=== PATIENT | female | born 1940 | race Caucasian/White ===

== ENCOUNTER 2018-03-22 14:09 | Emergency (ER) | payer OTHER ==
[~2018-03-22] VITALS: Ht 157.5 cm; Wt 84.8 kg
[~2018-03-22 14:09] MED LIST: COZAAR100 MG; COZAAR50 MG PO; EFFEXOR XR37.5 MG; METFORMIN HCL500 MG; METFORMIN HCL500 MG PO; MIRALAX12 EA PO; SYNTHROID50 MCG
[2018-03-22] MEDS ORDERED: ATORVASTATIN CA10 MG (14:13)
[2018-03-22] MEDS ORDERED: PROTONIX40 M1 (14:14)
[2018-03-22] MEDS ORDERED: TESSALON PERLE100 M1 (14:14)
[2018-03-22] MEDS ORDERED: CARAFATE1 GM/10 ML (14:15)
[2018-03-22] MEDS ORDERED: VENLAFAXINE HCL25 MG (14:15)
[2018-03-22] MEDS ORDERED: CLONAZEPAM0.125 MG (14:15)
== END 2018-03-22 20:32 | disposition home or self-care (01) ==
LOC: ER 14:09
DX: J22 Unspecified acute lower respiratory infection (principal); J06.9 Acute upper respiratory infection, unspecified; J11.1 Influenza due to unidentified influenza virus with other respiratory manifestations

== ENCOUNTER 2018-10-04 16:36 | Inpatient (IN) | payer OTHER ==
[~2018-10-04] VITALS: Ht 165.1 cm; Wt 199.6 kg
[~2018-10-04 16:36] MED LIST changes: +ATORVASTATIN CA10 MG; +CARAFATE1 GM/10 ML; +CLONAZEPAM0.125 MG; +PROTONIX40 M1; +TESSALON PERLE100 M1; +VENLAFAXINE HCL25 MG
[2018-10-11] MEDS ORDERED: PROTONIX40 MG PO (11:56)
[2018-10-11] MEDS ORDERED: ATORVASTATIN CA10 MG PO (11:56)
[2018-10-11] MEDS ORDERED: CLONAZEPAM0.5 MG PO (11:56)
[2018-10-11] MEDS ORDERED: METFORMIN HCL500 MG PO (11:56)
[2018-10-11] MEDS ORDERED: QUETIAPINE FUM100 MG PO (11:56)
[2018-10-11] MEDS ORDERED: COZAAR50 MG PO (11:56)
[2018-10-11] MEDS ORDERED: SYNTHROID50 MCG PO (11:56)
[2018-10-11] MEDS ORDERED: REMERON30 MG PO (11:56)
[2018-10-11] MEDS ORDERED: VENLAFAXINE HCL25 MG PO (11:56)
== END 2018-10-11 15:58 | disposition home or self-care (01) | DRG 378 ==
LOC: ER 16:36 → MEDJ 10-05 15:04
PROC: 02HV33Z Insertion of Infusion Device into Superior Vena Cava, Percutaneous Approach (ICD-10-PCS; 2018-10-05)
PROC: 0DJ08ZZ Inspection of Upper Intestinal Tract, Via Natural or Artificial Opening Endoscopic (ICD-10-PCS; principal; 2018-10-10)
DX: K29.01 Acute gastritis with bleeding (principal); N17.8 Other acute kidney failure; D62 Acute posthemorrhagic anemia; K92.0 Hematemesis; E11.9 Type 2 diabetes mellitus without complications; Z79.4 Long term (current) use of insulin; E03.8 Other specified hypothyroidism; E78.49 Other hyperlipidemia; F41.8 Other specified anxiety disorders; I12.9 Hypertensive chronic kidney disease with stage 1 through stage 4 chronic kidney disease, or unspecified chronic kidney disease; E86.0 Dehydration; E11.22 Type 2 diabetes mellitus with diabetic chronic kidney disease; N18.2 Chronic kidney disease, stage 2 (mild)

== ENCOUNTER 2019-06-11 00:53 | Inpatient (IN) | payer OTHER ==
[~2019-06-11] VITALS: Ht 160 cm; Wt 89.8 kg
[~2019-06-11 00:53] MED LIST changes: +ATORVASTATIN CA10 MG PO; +CLONAZEPAM0.5 MG PO; +PROTONIX40 MG PO; +QUETIAPINE FUM100 MG PO; +REMERON30 MG PO; +SYNTHROID50 MCG PO; +VENLAFAXINE HCL25 MG PO
--- NOTE | 2019-06-11 01:05 | NUR ---
PT ALERTA Y ORIENTADA X3 ESFERAS TRAIDA EN AMBULANCIA POR PARAMEDICOS Y ENFERMERA DEL HOME. [facility]. PT INDICA EL TAHIRA DE HOY A LAS 6PM SE ENCONTRABA EN SORAYA FIESTA DE CUMPLEANOS EN [facility], PT ANADE BEBIO 4 COPAS DE VINO MILLAN. REFIERE EN LA NOCHE SE DIRIGIO A [facility] CUARTO E INGIRIO [facility] PASTILLA PARA DORMIR CLONAZEPAM 1MG. PT REFIERE PASADA OSRAYA HORA EMPEZO A SENTIR ACIDEZ Y REFLUJO Y EN UN ERUCTO VOMITO 3 OCACIONES SECRECIONES COLOR CORI "COFFE-GROUND", LOLA DESCRIBE PT. PT INDICA PADECER DE GASTRITIS CRONICA, HBP, HIPOTIROIDISMO Y DM2. [facility]ERY INTERNISTA ES DR TAMMY MEJIA, QUIEN LO CONSULTO SORAYA OCACION A DR SINAN RILEY PARA SORAYA ENDOSCOPIA, Y EL ESTUDIO FUE NEGATIVO A ULCERA U OTRA IRREGULARIDAD. SE PRESENTA PT A DR FERMIN.
--- NOTE | 2019-06-11 02:19 | NUR ---
MRS AREVALO ORIENTA A PT SOBRE TX, LA CUAL REFIERE ENTENDER. LE CLECTA MUESTRAS, LA CANALZA Y LE ADMINISTRA MEDICAMENTOS LOLA ORDEN MEDICA. PT TOLERA.
--- NOTE | 2019-06-11 03:21 | NUR ---
MRS SPIVEY ORIENTA A PT E INSERTA NGT BAJO MEDIDAS ASEPTICAS POR NARE RT, AL MOMENTO DE INSERCION SE ENCUENTRA CON DIFICULTAD Y SE LASTIMA NARE RT. SE ASISTE A MRS SPIVEY EN LAVADO GASRICO, PTE PRESENTA EGRESO CON SECRECIONES COLOR " COFFEE BROWN" CON RESTOS DE COMIDA Y AL FINALIZAR LAVADO, SE OBSERVAN RESTOS DE BROOKS COLOR GUZMAN BRILLANTE. DR FERMIN EVALUA SECRECIONES. SE MANTIENE A PT EN OBSERVACION POR CAMBIOS CON NGT Y IVFS PATENTE.
--- NOTE | 2019-06-11 07:51 | NUR ---
SE RECIBE DE TURNO ANTERIOR. PACIENTE FEMENINA. ALERTA Y ORIENTADA EN JEWEL ESFERAS. CABECERA A 30 GRADOS. BARANDAS ELEVADAS POR AVERY SEGURIDAD. SE OBSERVA CON BUEN PATRON RESPIRATORIO. PIEL TIBIA AL TACTO. NGT COLOCADO, PATENTE EN FOSA NASAL R+. CANALIZACION PATENTE, GABINO DE EDEMA Y/O ENROJECIMIENTO RECIBENDO 0.9%NSS @ 125 ML/HR POR IV PUMP. PACIENTE EN ESPERA DE CONSULTA CON DR MEJIA.
[2019-06-13] MEDS ORDERED: SYNTHROID50 MCG PO (14:07)
[2019-06-13] MEDS ORDERED: CLONAZEPAM0.5 MG PO (14:07)
[2019-06-13] MEDS ORDERED: REMERON30 MG PO (14:07)
[2019-06-13] MEDS ORDERED: PROTONIX40 MG PO (14:07)
[2019-06-13] MEDS ORDERED: METFORMIN HCL500 MG PO (14:07)
[2019-06-13] MEDS ORDERED: ZANTAC300 MG PO (14:07)
[2019-06-13] MEDS ORDERED: POM (MEDICAMENTO EN PO (14:07)
[2019-06-13] MEDS ORDERED: ATORVASTATIN CA10 MG PO (14:07)
[2019-06-13] MEDS ORDERED: COZAAR50 MG PO (14:07)
[2019-06-13] MEDS ORDERED: TRAZODONE HCL150 MG PO (14:07)
[2019-06-13] MEDS ORDERED: ATORVASTATIN CA20 MG PO (14:11)
== END 2019-06-13 15:02 | disposition home or self-care (01) | DRG 379 ==
LOC: ER 00:53 → MEDJ 11:28 → SEC-K 11:28 → MEDJ 06-12 01:11
PROVIDERS: ADMIT Internal Medicine Geriatric Medicine
PROC: 0DB78ZX Excision of Stomach, Pylorus, Via Natural or Artificial Opening Endoscopic, Diagnostic (ICD-10-PCS; principal; 2019-06-13)
DX: K29.41 Chronic atrophic gastritis with bleeding (principal); K44.9 Diaphragmatic hernia without obstruction or gangrene; E03.8 Other specified hypothyroidism; K21.9 Gastro-esophageal reflux disease without esophagitis; N18.2 Chronic kidney disease, stage 2 (mild); I12.9 Hypertensive chronic kidney disease with stage 1 through stage 4 chronic kidney disease, or unspecified chronic kidney disease; F41.8 Other specified anxiety disorders; E11.22 Type 2 diabetes mellitus with diabetic chronic kidney disease; R31.29 Other microscopic hematuria; Z79.4 Long term (current) use of insulin

== ENCOUNTER 2019-09-19 09:11 | Outpatient (CLI) | payer OTHER ==
[~2019-09-19 09:11] MED LIST changes: +ATORVASTATIN CA20 MG PO; +POM (MEDICAMENTO EN PO; +TRAZODONE HCL150 MG PO; +ZANTAC300 MG PO
== END 2019-09-19 09:32 | disposition home or self-care (01) ==
LOC: TOM 09:11
DX: K57.30 Diverticulosis of large intestine without perforation or abscess without bleeding (principal); K56.600 Partial intestinal obstruction, unspecified as to cause

== ENCOUNTER 2020-09-29 20:59 | Inpatient (IN) | payer OTHER ==
[~2020-09-29] VITALS: Ht 162.6 cm; Wt 98.8 kg
[2020-09-29] MEDS ORDERED: CLONAZEPAM1 MG PO (21:10)
[2020-09-29] MEDS ORDERED: CLONAZEPAM2 MG PO (21:10)
[2020-09-29] MEDS ORDERED: METFORMIN HCL500 M4 PO (21:11)
[2020-09-29] MEDS ORDERED: DONEPEZIL HCL5 MG PO (21:14)
[2020-09-29] MEDS ORDERED: FLEXGEN TABLET1 EACH PO (21:15)
[2020-09-29] MEDS ORDERED: PANTOPRAZOLE SO40 MG PO (21:15)
[2020-09-29] MEDS ORDERED: LOSARTAN POTASS50 MG PO (21:15)
[2020-09-29] MEDS ORDERED: METOPROLOL SUCC50 MG PO (21:15)
--- NOTE | 2020-09-29 21:20 | NUR ---
SE RECIBE PACIENTE ACOMPANADA DE PARAMEDICOS, REFIEREN PTE DESORIENTADA , POR CAMBIO DE MEDICAMENTO EN [facility], HACE 2 SEMANAS , PTE EN HOGAR, REFIERE PARAMEDICOS QUE EN EL TAHIRA DE HOY PRESENTO CAMBIOS FACIALES. SE PRESENTA A SE UBICA EN AURELIA #10, CON BARRANDAS ELEVADAS A NIVEL MAS BAJO.
--- NOTE | 2020-09-29 22:42 | NUR ---
PTE FEMENINA ALERTA Y ORIENTADA SOLO EN PERSONA, ES EVALUADA POR . SE ORIENTA A PTE Y FAMILIAR SOBRE [place] REFIERE COMPRENDER. SE COLECTAN MUESTRAS DE LABORATORIO Y SE CANALIZA VENA BAJO MEDIDAS ASEPTICAS. SE ADMINISTRAN LIQUIDOS INTRAVENOSOS, LOLA ORDEN MEDICA. SE NOTIFICA A PERSONAL DE RADIOLOGIA PARA CT.
--- NOTE | 2020-09-29 23:32 | NUR ---
PATIENT IS RECEIVED FROM PREVIOUS SHIFT ALERT BUT NOT ORIENTED X3. PATIENT IS IN STABLE CONDITIONS IN BED WITH RAILINGS UP AND ACCOMPANIED BY FAMILY MEMBER. PATIENT HAS IVF 0.45% NACL AT 125 ML/HR WITH PATENT IV LINES AND CLEAN AND DRY VENIPUNCTURE. PATIENT HAS PENDING REEVALUATION BY DOCTOR.
--- NOTE | 2020-09-30 00:54 | NUR ---
PACIENTE ALERTA Y DESORIENTADA X3. SE OBSERVA PACIENTE ANSIOSA Y QUERIENDOSE LEVANTAR DE LA CAMA. SE ADMINISTRA MEDICAMENTO ORDENADO POR MD. SE MANTIENE BAJO OBSERVACION POR CAMBIOS SIGNIFICATIVOS.
--- NOTE | 2020-09-30 07:00 | NUR ---
PACIENTE FEMINA ALERTA Y DESORIENTADA. AREA DE VENOPUNCION PATENTE GABINO DE EDEMA Y ERITEMA. CONSULTADA CON DANIELLE MEJIA PARA SER EVALUADA. SE MAURICE PRIVACIDAD Y SEGURIDAD EN TODO MOMENTO. SE MAURICE PRIVACIDAD SEGURIDAD Y SE ASISTE A BRANDON NECESIDADS.
[2020-10-01] MEDS ORDERED: FLUOXETINE HCL40 MG (08:06)
[2020-10-01] MEDS ORDERED: ST. JOSEPH ASPI81 M2 (08:06)
[2020-10-01] MEDS ORDERED: QUETIAPINE FUMA50 MG (08:06)
[2020-10-01] MEDS ORDERED: SYNTHROID50 MCG (08:06)
[2020-10-01] MEDS ORDERED: SUCRALFATE1 GM (08:06)
[2020-10-01] MEDS ORDERED: TRAZODONE HCL150 MG (08:07)
[2020-10-08] MEDS ORDERED: ATORVASTATIN CA20 MG PO (12:44)
[2020-10-08] MEDS ORDERED: DONEPEZIL HCL5 MG PO (12:44)
[2020-10-08] MEDS ORDERED: LOSARTAN POTASS50 MG PO (12:44)
[2020-10-08] MEDS ORDERED: DEPAKOTE ER500 MG PO (12:44)
[2020-10-08] MEDS ORDERED: TOPROL XL100 M1 PO (12:44)
[2020-10-08] MEDS ORDERED: ST. JOSEPH ASPI81 M2 PO (12:44)
[2020-10-08] MEDS ORDERED: TRAZODONE HCL150 MG PO (12:44)
[2020-10-08] MEDS ORDERED: SYNTHROID50 MCG PO (12:44)
[2020-10-08] MEDS ORDERED: SUCRALFATE1 GM PO (12:44)
[2020-10-08] MEDS ORDERED: CLONAZEPAM0.5 MG PO (12:44)
[2020-10-08] MEDS ORDERED: PANTOPRAZOLE SO40 MG PO (12:44)
[2020-10-08] MEDS ORDERED: FLUOXETINE HCL40 MG PO (12:44)
[2020-10-08] MEDS ORDERED: CLONAZEPAM1 MG PO (12:44)
== END 2020-10-08 16:16 | disposition home or self-care (01) | DRG 690 ==
LOC: ER 20:59 → MEDI 09-30 11:21
PROVIDERS: ADMIT Internal Medicine Geriatric Medicine; ATTEND Internal Medicine Geriatric Medicine
PROC: 4A033R1 Measurement of Arterial Saturation, Peripheral, Percutaneous Approach (ICD-10-PCS; principal; 2020-09-30)
PROC: BW28ZZZ Computerized Tomography (CT Scan) of Head (ICD-10-PCS; 2020-09-30)
DX: N39.0 Urinary tract infection, site not specified (principal); E11.9 Type 2 diabetes mellitus without complications; F32.89 Other specified depressive episodes; I12.9 Hypertensive chronic kidney disease with stage 1 through stage 4 chronic kidney disease, or unspecified chronic kidney disease; N18.9 Chronic kidney disease, unspecified; E86.0 Dehydration; Z20.828 Contact with and (suspected) exposure to other viral communicable diseases; B96.29 Other Escherichia coli [E. coli] as the cause of diseases classified elsewhere; D64.9 Anemia, unspecified; G30.8 Other Alzheimer's disease; F02.80 Dementia in other diseases classified elsewhere, unspecified severity, without behavioral disturbance, psychotic disturbance, mood disturbance, and anxiety; R09.02 Hypoxemia; I48.91 Unspecified atrial fibrillation; T43.8X5A Adverse effect of other psychotropic drugs, initial encounter

== ENCOUNTER → 2020-10-09 | Emergency (ER) | payer OTHER ==
[~2020-10-09] VITALS: Ht 157.5 cm; Wt 72.6 kg
[~2020-10-09] MED LIST changes: +CLONAZEPAM1 MG PO; +CLONAZEPAM2 MG PO; +DEPAKOTE ER500 MG PO; +DIVALPROEX SOD250 M1 PO; +DONEPEZIL HCL5 MG PO; +FAMOTIDINE20 MG PO; +FLEXGEN TABLET1 EACH PO; +FLUOXETINE HCL40 MG; +FLUOXETINE HCL40 MG PO; +INTESTINEX680 M1 PO; +ISOSORBIDE MONO30 MG PO; +LORAZEPAM1 MG PO; +LOSARTAN POTASS50 MG PO; +METFORMIN HCL500 M4 PO; +METOPROLOL SUCC50 MG PO; +PANTOPRAZOLE SO40 MG PO; +PROZAC20 MG PO; +QUETIAPINE FUMA50 MG; +ST. JOSEPH ASPI81 M2; +ST. JOSEPH ASPI81 M2 PO; +SUCRALFATE1 GM; +SUCRALFATE1 GM PO; +Seroquel PO; +TOPROL XL100 M1 PO; +TRAZODONE HCL150 MG; +XOPENEX0.63 MG/3 IH
== END | disposition home or self-care (01) ==
LOC: ER 11:53
DX: J40 Bronchitis, not specified as acute or chronic (principal); F02.80 Dementia in other diseases classified elsewhere, unspecified severity, without behavioral disturbance, psychotic disturbance, mood disturbance, and anxiety; Z03.818 Encounter for observation for suspected exposure to other biological agents ruled out; R05 Cough

== ENCOUNTER 2020-10-21 16:19 | Inpatient (IN) | payer OTHER ==
[~2020-10-21] VITALS: Ht 154.9 cm; Wt 95.3 kg
[~2020-10-21 16:19] MED LIST changes: -DIVALPROEX SOD250 M1 PO; -FAMOTIDINE20 MG PO; -INTESTINEX680 M1 PO; -ISOSORBIDE MONO30 MG PO; -LORAZEPAM1 MG PO; -PROZAC20 MG PO; -Seroquel PO; -XOPENEX0.63 MG/3 IH
[2020-11-02] MEDS ORDERED: DIVALPROEX SOD250 M1 PO (13:19)
[2020-11-02] MEDS ORDERED: FAMOTIDINE20 MG PO (13:19)
[2020-11-02] MEDS ORDERED: LORAZEPAM1 MG PO ×2 (13:19)
[2020-11-02] MEDS ORDERED: PROZAC20 MG PO (13:19)
[2020-11-02] MEDS ORDERED: ATORVASTATIN CA20 MG PO (13:19)
[2020-11-02] MEDS ORDERED: Seroquel PO (13:19)
[2020-11-02] MEDS ORDERED: LOSARTAN POTASS50 MG PO (13:19)
[2020-11-02] MEDS ORDERED: TOPROL XL100 M1 PO (13:19)
[2020-11-02] MEDS ORDERED: ISOSORBIDE MONO30 MG PO (13:19)
[2020-11-02] MEDS ORDERED: DEPAKOTE ER500 MG PO (13:19)
[2020-11-02] MEDS ORDERED: INTESTINEX680 M1 PO (13:19)
[2020-11-02] MEDS ORDERED: ST. JOSEPH ASPI81 M2 PO (13:19)
[2020-11-02] MEDS ORDERED: XOPENEX0.63 MG/3 IH (13:19)
[2020-11-02] MEDS ORDERED: SYNTHROID50 MCG PO (13:19)
== END 2020-11-02 18:51 | disposition home or self-care (01) | DRG 291 ==
LOC: ER 16:19 → MEDJ 10-22 09:56 → MEDI 10-27 14:57
PROVIDERS: ADMIT Internal Medicine Geriatric Medicine; ATTEND Internal Medicine Geriatric Medicine
PROC: 4A033R1 Measurement of Arterial Saturation, Peripheral, Percutaneous Approach (ICD-10-PCS; principal; 2020-10-22)
PROC: B24BZZZ Ultrasonography of Heart with Aorta (ICD-10-PCS; 2020-10-22)
PROC: 4A12X4Z Monitoring of Cardiac Electrical Activity, External Approach (ICD-10-PCS; 2020-10-22)
PROC: CB2YYZZ Tomographic (Tomo) Nuclear Medicine Imaging of Respiratory System using Other Radionuclide (ICD-10-PCS; 2020-10-23)
PROC: 3E0F7SF Introduction of Other Gas into Respiratory Tract, Via Natural or Artificial Opening (ICD-10-PCS; 2020-10-23)
PROC: 02H633Z Insertion of Infusion Device into Right Atrium, Percutaneous Approach (ICD-10-PCS; 2020-10-25)
DX: I11.0 Hypertensive heart disease with heart failure (principal); J69.0 Pneumonitis due to inhalation of food and vomit; J98.11 Atelectasis; I48.20 Chronic atrial fibrillation, unspecified; F03.91 Unspecified dementia, unspecified severity, with behavioral disturbance; I50.32 Chronic diastolic (congestive) heart failure; Z74.01 Bed confinement status; R09.02 Hypoxemia; E11.9 Type 2 diabetes mellitus without complications; N18.9 Chronic kidney disease, unspecified; Z20.828 Contact with and (suspected) exposure to other viral communicable diseases; Z79.4 Long term (current) use of insulin

== ENCOUNTER 2020-12-30 00:14 | Inpatient (IN) | payer OTHER ==
[~2020-12-30] VITALS: Ht 165.1 cm; Wt 74.8 kg
[~2020-12-30 00:14] MED LIST changes: +DIVALPROEX SOD250 M1 PO; +FAMOTIDINE20 MG PO; +INTESTINEX680 M1 PO; +ISOSORBIDE MONO30 MG PO; +LORAZEPAM1 MG PO; +PROZAC20 MG PO; +Seroquel PO; +XOPENEX0.63 MG/3 IH
--- NOTE | 2020-12-30 01:06 | NUR ---
PACIENTE FEMINA ALERTA NO ORIENTADA EN COMPANIA DE CUIDADORA. LA MISMA REFIERE ES TRANFERIDA DESDE [facility] OR DIFICULTAD RESPIRATORIA. AL MOMENTO DEL TRIAGE NO PRESENTA DIFICULTAD RESPIRATORIA Y LA SATURACION SE ENCUENTRA DENTRO DE LOS PARAMETROS NORMALES 98%. SE UBICA EN OBSERVACION PARA SER EVALUADA POR EL MEDICO.
--- NOTE | 2020-12-30 02:51 | NUR ---
PACIENTE FEMINA ALERTA SE RE ORIENTA AL ACOMPANANTE SOBRE EL TRATAMIENTO ORDENADO POR EL MEDICO LA MISMA REFIERE ENTENDER. BAJO MEDIDAS ASEPTICAS SE CANALIZA SE ANA LILIA MUESTRAS DE LABORATORIO Y SE ADMINISTRAN MEDICAMENTOS. ORDENES TOMADAS Y EJECUTADAS POR RN: [id number].
--- NOTE | 2020-12-30 07:00 | NUR ---
SE RECIBE PACIENTE FEMENINA ALERTA Y ORIENTADA CON BARANDAS ELEVADAS, CHRISTY Y RESTRINGUIDA X1. AREA DE VENOPUNCION EN ANTEBRAZO DERECHO Y PATENTE AREA GABINO DE EDEMA Y ENROJECIMIENTO. PENDIENTE A CONSULTA CON DR. MEJIA. SE LE MAURICE EN TODO MOMENTO SEGURIDAD Y PRIVACIDAD.
--- NOTE | 2020-12-30 08:58 | NUR ---
SE NOTIFICA TEMPERATURA DE PTE 102.[address] MEJIA QUIEN INDICA ORDENARA [place].
[2021-01-06] MEDS ORDERED: FAMOTIDINE20 MG PO (14:11)
[2021-01-06] MEDS ORDERED: SYNTHROID50 MCG PO (14:11)
[2021-01-06] MEDS ORDERED: DEPAKOTE ER500 MG PO (14:11)
[2021-01-06] MEDS ORDERED: DONEPEZIL HCL5 MG PO (14:11)
[2021-01-06] MEDS ORDERED: SUCRALFATE1 GM PO (14:11)
[2021-01-06] MEDS ORDERED: ISOSORBIDE MONO30 MG PO (14:11)
[2021-01-06] MEDS ORDERED: PANTOPRAZOLE SO40 MG PO (14:11)
[2021-01-06] MEDS ORDERED: DILTIAZEM HCL30 MG PO (14:11)
[2021-01-06] MEDS ORDERED: ATORVASTATIN CA20 MG PO (14:11)
[2021-01-06] MEDS ORDERED: XOPENEX0.63 MG/3 IH (14:11)
[2021-01-06] MEDS ORDERED: ST. JOSEPH ASPI81 M2 PO (14:11)
[2021-01-06] MEDS ORDERED: TOPROL XL100 M1 PO (14:11)
[2021-01-06] MEDS ORDERED: TRAZODONE HCL150 MG PO (14:11)
[2021-01-06] MEDS ORDERED: FLUOXETINE HCL40 MG PO (14:11)
[2021-01-06] MEDS ORDERED: QUETIAPINE FUMA25 MG PO (14:11)
[2021-01-06] MEDS ORDERED: INTESTINEX680 M1 PO (14:11)
[2021-01-06] MEDS ORDERED: CLONAZEPAM1 MG PO (14:11)
[2021-01-06] MEDS ORDERED: DIVALPROEX SOD250 M1 PO (14:11)
== END 2021-01-06 20:23 | disposition home or self-care (01) | DRG 178 ==
LOC: ER 00:14 → SEC-K 11:00 → SURH 20:12 → MEDJ 01-03 13:09
PROVIDERS: ADMIT Internal Medicine Geriatric Medicine; ATTEND Internal Medicine Geriatric Medicine
PROC: 02HV33Z Insertion of Infusion Device into Superior Vena Cava, Percutaneous Approach (ICD-10-PCS; principal; 2020-12-30)
PROC: 3E043KZ Introduction of Other Diagnostic Substance into Central Vein, Percutaneous Approach (ICD-10-PCS; 2020-12-30)
PROC: 3E0F7SF Introduction of Other Gas into Respiratory Tract, Via Natural or Artificial Opening (ICD-10-PCS; 2020-12-30)
PROC: 4A12X4Z Monitoring of Cardiac Electrical Activity, External Approach (ICD-10-PCS; 2020-12-31)
DX: J69.0 Pneumonitis due to inhalation of food and vomit (principal); J98.11 Atelectasis; N39.0 Urinary tract infection, site not specified; R09.02 Hypoxemia; F01.50 Vascular dementia, unspecified severity, without behavioral disturbance, psychotic disturbance, mood disturbance, and anxiety; E11.22 Type 2 diabetes mellitus with diabetic chronic kidney disease; I12.9 Hypertensive chronic kidney disease with stage 1 through stage 4 chronic kidney disease, or unspecified chronic kidney disease; N18.9 Chronic kidney disease, unspecified; I48.91 Unspecified atrial fibrillation; E03.9 Hypothyroidism, unspecified; Z74.01 Bed confinement status; Z79.84 Long term (current) use of oral hypoglycemic drugs

== ENCOUNTER 2022-08-01 18:44 | Inpatient (IN) | payer OTHER ==
[~2022-08-01] VITALS: Ht 165.1 cm; Wt 68.0 kg
[~2022-08-01 18:44] MED LIST changes: +DILTIAZEM HCL30 MG PO; +QUETIAPINE FUMA25 MG PO
--- NOTE | 2022-08-01 18:58 | NUR ---
PTE RECIBIDA EN AMBULANCIA EN COMPANIA DE CUIDADORA TRAIDA DE HOME,PARAMEDICOS REFIEREN PTE CON EDEMA GENERALIZADA,RENTENCION DE ORINA Y DESORIENTACION.
--- NOTE | 2022-08-01 20:39 | NUR ---
PTE FEMENINA EVALUADA POR . SE ORIENTA A CUIDADORA SOBRE ORDENES DE [place] REFIERE COMPRENDER. SE COLECTAN MUESTRAS DE LABORATORIOS, BAJO MEDIDAS ASEPTICAS. SE REALIZA EKG. SE INSERTA SONDA URINARIA A GRAVEDAD, BAJO MEDIDAS ESTERILES. SE NOTIFICAN ABGS A . SE NOTIFICA A RADIOLOGIA PARA XRAY.
--- NOTE | 2022-08-02 00:23 | NUR ---
PACIENTE ALERTA Y DESORIENTADA X3. EN POSICION SEMI-SENTADA EN AURELIA CON BARANDAS ELEVADAS Y ACOMPANADA POR CUIDADORA. SE ORIENTA A CUIDADORA SOBRE TX A RECIBIR Y REFIRIO ENTENDER. SE REALIZO CANALIZACION BAJO MEDIDAS ASEPTICAS. SE MANTIENE BAJO OBSERVACION POR CAMBIOS SIGNIFICATIVOS. PENDIENTE CONSULTA CON DR. MEJIA.
--- NOTE | 2022-08-02 02:20 | NUR ---
MIS. HARRIS ADMINISTRA MEDICAMENTO ORDENADO POR
[2022-08-11] MEDS ORDERED: quetiapine PO (13:54)
[2022-08-11] MEDS ORDERED: FLUOXETINE HCL40 MG PO (13:54)
[2022-08-11] MEDS ORDERED: CARAFATE1 GM PO (13:54)
[2022-08-11] MEDS ORDERED: ISOSORBIDE MONO30 MG PO (13:54)
[2022-08-11] MEDS ORDERED: COZAAR50 MG PO (13:54)
[2022-08-11] MEDS ORDERED: TRAZODONE HCL50 MG PO (13:54)
[2022-08-11] MEDS ORDERED: DIVALPROEX SOD250 M1 PO (13:54)
[2022-08-11] MEDS ORDERED: PANTOPRAZOLE SO40 MG PO (13:54)
[2022-08-11] MEDS ORDERED: XOPENEX0.63 MG/3 IH (13:54)
[2022-08-11] MEDS ORDERED: ATORVASTATIN CA20 MG PO (13:54)
[2022-08-11] MEDS ORDERED: DONEPEZIL HCL5 MG PO (13:54)
[2022-08-11] MEDS ORDERED: CLONAZEPAM2 MG PO (13:54)
[2022-08-11] MEDS ORDERED: SYNTHROID50 MCG PO (13:54)
[2022-08-11] MEDS ORDERED: INTESTINEX680 M1 PO (13:54)
[2022-08-11] MEDS ORDERED: DILTIAZEM HCL30 MG PO (13:54)
[2022-08-11] MEDS ORDERED: ST. JOSEPH ASPI81 M2 PO (13:54)
[2022-08-11] MEDS ORDERED: BISACODYL5 MG PO (13:54)
[2022-08-11] MEDS ORDERED: TOPROL XL100 M1 PO (13:54)
[2022-08-11] MEDS ORDERED: LOSARTAN POTASS50 MG PO (13:54)
== END 2022-08-11 18:19 | disposition home or self-care (01) | DRG 689 ==
LOC: ER 18:44 → SEC-K 08-02 04:02 → MEDJ 08-02 04:02
PROVIDERS: ADMIT Internal Medicine Geriatric Medicine; ATTEND Internal Medicine Geriatric Medicine
PROC: B24BZZZ Ultrasonography of Heart with Aorta (ICD-10-PCS; principal; 2022-08-03)
PROC: 02HV33Z Insertion of Infusion Device into Superior Vena Cava, Percutaneous Approach (ICD-10-PCS; 2022-08-07)
DX: N39.0 Urinary tract infection, site not specified (principal); G92.8 Other toxic encephalopathy; J69.0 Pneumonitis due to inhalation of food and vomit; R78.81 Bacteremia; R09.02 Hypoxemia; B96.20 Unspecified Escherichia coli [E. coli] as the cause of diseases classified elsewhere; B96.89 Other specified bacterial agents as the cause of diseases classified elsewhere; L89.151 Pressure ulcer of sacral region, stage 1; I10 Essential (primary) hypertension; E11.9 Type 2 diabetes mellitus without complications; Z79.4 Long term (current) use of insulin; E78.49 Other hyperlipidemia; E03.9 Hypothyroidism, unspecified; F01.50 Vascular dementia, unspecified severity, without behavioral disturbance, psychotic disturbance, mood disturbance, and anxiety; Z20.822 Contact with and (suspected) exposure to COVID-19; Z74.01 Bed confinement status

== ENCOUNTER 2022-08-21 15:21 | Inpatient (IN) | payer OTHER ==
[~2022-08-21] VITALS: Ht 152.4 cm; Wt 95.3 kg
[~2022-08-21 15:21] MED LIST changes: +BISACODYL5 MG PO; +CARAFATE1 GM PO; +TRAZODONE HCL50 MG PO; +quetiapine PO
--- NOTE | 2022-08-21 15:21 | NUR ---
1505 SE RECIBE DEL TURNO ANTERIOR PTE ALERTA CON DISTRESS RESPIRATORIO CON NON REBREATHER AL 100%. EMT CHARU A PTE EN AURELIA #2, SE COLOCA MONITOR CARDIACO, NBP Y OXIMETRIA CONTINUA. SE OBSERVA PTE CON ANASARCA. SE CANALIZA EN BRAZO ERIC Y SE ADMINISTRA MEDICAMENTOS LOLA ORDEN MEDICA. SE COLOCA CHRISTY A GRAVEDAD UTILIZANDO MEDIDAS ASEPTICAS Y ESTERIL. LE REALIZAN ABG'S. CUIDADORA DE PTE REFIERE QUE PTE SE OBSERVA FATIGADA DESDE LAS 11AM. PENDIENTE EKG
[2022-09-05] MEDS ORDERED: TRAZODONE HCL50 MG PO (13:19)
[2022-09-05] MEDS ORDERED: LOSARTAN POTASS50 MG PO (13:19)
[2022-09-05] MEDS ORDERED: SPIRONOLACTONE25 MG PO (13:19)
[2022-09-05] MEDS ORDERED: INTESTINEX680 M1 PO (13:19)
[2022-09-05] MEDS ORDERED: DIVALPROEX SOD250 M1 PO (13:19)
[2022-09-05] MEDS ORDERED: ISOSORBIDE MONO30 MG PO (13:19)
[2022-09-05] MEDS ORDERED: DILTIAZEM HCL30 MG PO (13:19)
[2022-09-05] MEDS ORDERED: XOPENEX0.63 MG/3 IH (13:19)
[2022-09-05] MEDS ORDERED: ST. JOSEPH ASPI81 M2 PO (13:19)
[2022-09-05] MEDS ORDERED: QUETIAPINE FUMA25 MG PO (13:19)
[2022-09-05] MEDS ORDERED: CARAFATE1 GM PO (13:19)
[2022-09-05] MEDS ORDERED: metoprolol succinate PO (13:19)
[2022-09-05] MEDS ORDERED: SYNTHROID50 MCG PO (13:19)
[2022-09-05] MEDS ORDERED: ATORVASTATIN CA20 MG PO (13:19)
[2022-09-05] MEDS ORDERED: PANTOPRAZOLE SO40 MG PO (13:19)
[2022-09-05] MEDS ORDERED: HYDRODIURIL12.5 MG PO (13:19)
[2022-09-05] MEDS ORDERED: BISACODYL5 MG PO (13:19)
[2022-09-05] MEDS ORDERED: FAMOTIDINE20 MG PO (13:19)
[2022-09-05] MEDS ORDERED: DONEPEZIL HCL5 MG PO (13:19)
== END 2022-09-05 22:17 | disposition home or self-care (01) | DRG 178 ==
LOC: ER 15:21 → MEDI 19:52 → MEDJ 08-29 14:11
PROVIDERS: ADMIT Internal Medicine Geriatric Medicine; ATTEND Internal Medicine Geriatric Medicine
PROC: 4A12X4Z Monitoring of Cardiac Electrical Activity, External Approach (ICD-10-PCS; 2022-08-21)
PROC: B54MZZZ Ultrasonography of Right Upper Extremity Veins (ICD-10-PCS; 2022-08-22)
PROC: 02HV33Z Insertion of Infusion Device into Superior Vena Cava, Percutaneous Approach (ICD-10-PCS; principal; 2022-08-23)
PROC: 30233N1 Transfusion of Nonautologous Red Blood Cells into Peripheral Vein, Percutaneous Approach (ICD-10-PCS; 2022-08-25)
PROC: 8E0ZXY6 Isolation (ICD-10-PCS; 2022-08-29)
PROC: 5A0945A Assistance with Respiratory Ventilation, 24-96 Consecutive Hours, High Flow/Velocity Cannula (ICD-10-PCS; 2022-08-30)
DX: J69.0 Pneumonitis due to inhalation of food and vomit (principal); I13.0 Hypertensive heart and chronic kidney disease with heart failure and stage 1 through stage 4 chronic kidney disease, or unspecified chronic kidney disease; J98.11 Atelectasis; N39.0 Urinary tract infection, site not specified; J15.212 Pneumonia due to Methicillin resistant Staphylococcus aureus; B96.29 Other Escherichia coli [E. coli] as the cause of diseases classified elsewhere; B96.1 Klebsiella pneumoniae [K. pneumoniae] as the cause of diseases classified elsewhere; Z74.01 Bed confinement status; L98.419 Non-pressure chronic ulcer of buttock with unspecified severity; R09.02 Hypoxemia; D64.9 Anemia, unspecified; F01.50 Vascular dementia, unspecified severity, without behavioral disturbance, psychotic disturbance, mood disturbance, and anxiety; I50.9 Heart failure, unspecified; N18.9 Chronic kidney disease, unspecified; E11.22 Type 2 diabetes mellitus with diabetic chronic kidney disease; Z79.4 Long term (current) use of insulin; E03.9 Hypothyroidism, unspecified

== ENCOUNTER 2022-10-25 14:58 | Emergency (ER) | payer OTHER ==
[~2022-10-25] VITALS: Ht 165.1 cm; Wt 59.0 kg
[~2022-10-25 14:58] MED LIST changes: +HYDRODIURIL12.5 MG PO; +SPIRONOLACTONE25 MG PO; +metoprolol succinate PO
== END 2022-10-25 21:20 | disposition home or self-care (01) ==
LOC: ER 14:58
DX: L89.154 Pressure ulcer of sacral region, stage 4 (principal); E11.9 Type 2 diabetes mellitus without complications; Z79.84 Long term (current) use of oral hypoglycemic drugs; Z20.822 Contact with and (suspected) exposure to COVID-19; B96.89 Other specified bacterial agents as the cause of diseases classified elsewhere